=== PATIENT | female | born 1940 | race Caucasian/White ===

== ENCOUNTER 2016-09-28 16:20 | Inpatient (IN) | payer OTHER ==
[~2016-09-28] VITALS: Ht 167.6 cm; Wt 99.5 kg
[2016-09-28 16:20] VITALS: BP_SYST 158
[2016-09-28] MEDS ORDERED: traMADol HCL HCL 50 MG TABLET (ULTRAM) PO ONE (16:45)
[2016-09-28 17:23] LABS: BASOPHILS # (AUTO) 0.1 K/uL (0.0-0.2); EOSINOPHILS # (AUTO) 0.1 K/uL (0.0-0.4); EOSINOPHILS % (AUTO) 1.8 % (0.0-4.0); HEMATOCRIT 37.9 % (36-48); HEMOGLOBIN 12.7 g/dL (12.0-16.0); LYMPHOCYTES # (AUTO) 2.6 K/uL (1.0-5.5); LYMPHOCYTES % (AUTO) 32.3 % (20.5-51.5); MEAN CORPUSCULAR HEMOGLOBIN 27 pg (27-31); MEAN CORPUSCULAR HGB CONC 34 % (32-36); MEAN CORPUSCULAR VOLUME 81 fL (79.0-98.0); MONOCYTES # (AUTO) 0.8 K/uL (0.0-1.0); MONOCYTES % (AUTO) 9.3 % (1.7-9.3); NEUTROPHILS # (AUTO) 4.5 K/uL (1.8-7.7); NEUTROPHILS % (AUTO) 55.6 % (40.0-70.0); PLATELET COUNT (AUTO) 349 K/uL (130-430); RED BLOOD CELL COUNT(AUTO) 4.69 MIL/uL (4.2-6.2); RED CELL DISTRIBUTION WIDTH 14.6 % (9.0-15.0); WHITE BLOOD COUNT (AUTO) 8.1 K/uL (4.8-10.8)
[2016-09-28 17:33] LABS: ANION GAP 13 (5-15); CHLORIDE 102 mmol/L (98-107); CREATININE 1.17 mg/dL (0.55-1.30); GLUCOSE 187 mg/dL (70-99); POTASSIUM 3.5 mmol/L (3.5-5.1); SODIUM SERUM 141 mmol/L (136-145); UREA NITROGEN, BLOOD 18 mg/dL (8-21)
[2016-09-28 17:41] LABS: ALANINE AMINOTRANSFERASE 60 U/L (12-78); ALBUMIN 3.5 g/dL (3.4-4.8); ASPARTATE AMINOTRANSFERASE 55 U/L (10-37); TOTAL BILIRUBIN 0.6 mg/dL (0.0-1.0)
[2016-09-28] MEDS ORDERED: LORA-258 PO (19:53)
[2016-09-28] MEDS ORDERED: BENA10TA2 PO (19:53)
[2016-09-28] MEDS ORDERED: SIMV10TA6 PO (19:53)
[2016-09-28] MEDS ORDERED: PREG75CA PO (19:53)
[2016-09-28] MEDS ORDERED: DULA0.75 SQ (19:53)
[2016-09-28] MEDS ORDERED: HYG25 PO (19:53)
[2016-09-28] MEDS ORDERED: TYC3 PO (19:53)
[2016-09-28] MEDS ORDERED: METF1000 PO (19:53)
[2016-09-28] MEDS ORDERED: PRO20 PO (19:53)
[2016-09-28] MEDS ORDERED: CALC260T7 PO (19:53)
[2016-09-28] MEDS ORDERED: METR45CR9 TP (19:53)
[2016-09-28] MEDS ORDERED: FLUO10CA65 PO (19:53)
[2016-09-28] MEDS ORDERED: LORA1TAB PO (19:53)
[2016-09-28 20:07] VITALS: BP_SYST 150
[2016-09-28 20:19] VITALS: BP_SYST 150
[2016-09-28] MEDS ORDERED: ACETAMINOPHEN/CODEINE 300 MG-30 MG TABLET PO PRN (21:15)
[2016-09-28] MEDS ORDERED: DEXTROSE 50% JECT 50 ML DISP.SYRIN IVP PRN (21:30)
[2016-09-28] MEDS ORDERED: ALPRAZolam 0.25 MG TABLET PO PRN (21:30)
[2016-09-28] MEDS ORDERED: TEMAZEPAM 15 MG CAPSULE PO PRN (21:30)
[2016-09-28] MEDS: DIPHENHYDRAMINE HCL 25 MG CAPSULE PO PRN (23:30)
[2016-09-29] VITALS: BP_SYST 170
[2016-09-29 04:22] VITALS: BP_SYST 159
[2016-09-29] MEDS: INSULIN REGULAR, HUMAN 100 UNITS/ML, 10 ML VIAL (novoLIN R) SUBCUT PRN ×3 (06:32→20:37)
[2016-09-29 07:26] LABS: BILIRUBIN,URINE NEGATIVE (NEGATIVE); BLOOD, URINE NEGATIVE (NEGATIVE); CLARITY/URINE CLEAR (CLEAR); COLOR,URINE YELLOW (YELLOW); GLUCOSE,URINE NEGATIVE (NEGATIVE); KETONES,URINE NEGATIVE (NEGATIVE); LEUKOCYTE ESTERASE ,URINE NEGATIVE (NEGATIVE); NITRITE, URINE NEGATIVE (NEGATIVE); PROTEIN URINE NEGATIVE (NEGATIVE); UROBILINOGEN,URINE 0.2 (0.2-1.0)
[2016-09-29 07:42] LABS: BASOPHILS # (AUTO) 0.1 K/uL (0.0-0.2); BASOPHILS % (AUTO) 1.1 % (0.0-2.0); EOSINOPHILS # (AUTO) 0.2 K/uL (0.0-0.4); EOSINOPHILS % (AUTO) 2.3 % (0.0-4.0); HEMATOCRIT 40.3 % (36-48); LYMPHOCYTES # (AUTO) 2.5 K/uL (1.0-5.5); LYMPHOCYTES % (AUTO) 36.2 % (20.5-51.5); MEAN CORPUSCULAR HEMOGLOBIN 27 pg (27-31); MEAN CORPUSCULAR HGB CONC 32 % (32-36); MEAN CORPUSCULAR VOLUME 82 fL (79.0-98.0); MONOCYTES # (AUTO) 0.7 K/uL (0.0-1.0); MONOCYTES % (AUTO) 10.2 % (1.7-9.3); NEUTROPHILS # (AUTO) 3.4 K/uL (1.8-7.7); NEUTROPHILS % (AUTO) 50.2 % (40.0-70.0); PLATELET COUNT (AUTO) 351 K/uL (130-430); RED BLOOD CELL COUNT(AUTO) 4.91 MIL/uL (4.2-6.2); RED CELL DISTRIBUTION WIDTH 14.8 % (9.0-15.0); WHITE BLOOD COUNT (AUTO) 6.9 K/uL (4.8-10.8)
[2016-09-29 07:59] LABS: ALANINE AMINOTRANSFERASE 60 U/L (12-78); ALBUMIN 3.6 g/dL (3.4-4.8); ANION GAP 8 (5-15); ASPARTATE AMINOTRANSFERASE 51 U/L (10-37); CALCIUM 9.4 mg/dL (8.4-11.0); CHLORIDE 100 mmol/L (98-107); CHOLESTEROL 161 mg/dL (<200); CREATININE 0.79 mg/dL (0.55-1.30); GLUCOSE 220 mg/dL (70-99); HDL CHOLESTEROL 38 mg/dL (>55); LDL CHOLESTEROL 96 mg/dL (<100); POTASSIUM 3.4 mmol/L (3.5-5.1); SODIUM SERUM 137 mmol/L (136-145); THYROID STIMULATING HORMONE 1.76 uIu/mL (0.34-4.82); TOTAL BILIRUBIN 0.9 mg/dL (0.0-1.0); TOTAL PROTEIN, SERUM 7.5 g/dL (6.4-8.3); TRIGLYCERIDES 228 mg/dL (30-150); UREA NITROGEN, BLOOD 15 mg/dL (8-21)
[2016-09-29 08:00] VITALS: BP_SYST 125
[2016-09-29] MEDS: PREGABALIN 25 MG CAPSULE (LYRICA) PO SCH ×3 (08:20→20:38)
[2016-09-29] MEDS: FLUoxetine HCL 20 MG CAPSULE (PROzac) PO SCH (08:21)
[2016-09-29] MEDS: CALCIUM 500 MG/TAB PO SCH ×2 (08:21→20:38)
[2016-09-29] MEDS: metFORMIN HCL 500 MG TABLET PO SCH ×2 (08:21→17:48)
[2016-09-29] MEDS: BENAZEPRIL HCL 10 MG TABLET (LOTENSIN) PO SCH (08:21)
[2016-09-29] MEDS ORDERED: CALCIUM CARBONATE 650 MG TABLET PO SCH (09:00)
[2016-09-29] MEDS ORDERED: PREGABALIN 25 MG CAPSULE (LYRICA) PO SCH (09:00)
[2016-09-29 09:53] LABS: ERYTHROCYTE SEDIMENTATION RATE 11 MM/HR (0-20)
[2016-09-29 12:29] VITALS: BP_SYST 140
[2016-09-29 16:32] VITALS: BP_SYST 140
[2016-09-29] MEDS ORDERED: POTASSIUM CHLORIDE 20 MEQ TAB.PRT.SR PO ONE (16:45)
[2016-09-29 19:54] VITALS: BP_SYST 144
[2016-09-29] MEDS: SIMVASTATIN 10 MG TABLET PO SCH (20:38)
[2016-09-29] MEDS: DIPHENHYDRAMINE HCL 25 MG CAPSULE PO PRN (20:38)
[2016-09-30] VITALS (7 sets, daily range): BP systolic 107–158
[2016-09-30] MEDS: INSULIN REGULAR, HUMAN 100 UNITS/ML, 10 ML VIAL (novoLIN R) SUBCUT PRN ×3 (05:42→18:18)
[2016-09-30] MEDS: CALCIUM 500 MG/TAB PO SCH ×2 (08:44→21:22)
[2016-09-30] MEDS: FLUoxetine HCL 20 MG CAPSULE (PROzac) PO SCH (08:44)
[2016-09-30] MEDS: BENAZEPRIL HCL 10 MG TABLET (LOTENSIN) PO SCH (08:44)
[2016-09-30] MEDS: metFORMIN HCL 500 MG TABLET PO SCH ×2 (08:44→18:16)
[2016-09-30] MEDS: PREGABALIN 25 MG CAPSULE (LYRICA) PO SCH ×3 (08:45→21:22)
[2016-09-30 10:22] LABS: FOLATE (FOLIC ACID) >20.0 ng/mL (>3.0)
[2016-09-30] MEDS ORDERED: LACTOBACILLUS RHAMNOSUS GG 1 CAP CAPSULE PO ONE (10:45)
[2016-09-30] MEDS: metroNIDAZOLE 500 MG TABLET PO SCH ×2 (13:04→21:21)
[2016-09-30] MEDS: SIMVASTATIN 10 MG TABLET PO SCH (21:21)
[2016-09-30] MEDS: LACTOBACILLUS RHAMNOSUS GG 1 CAP CAPSULE PO SCH (21:22)
[2016-10-01] MEDS: metroNIDAZOLE 500 MG TABLET PO SCH ×3 (05:50→21:02)
[2016-10-01] MEDS: INSULIN REGULAR, HUMAN 100 UNITS/ML, 10 ML VIAL (novoLIN R) SUBCUT PRN ×3 (06:08→21:07)
[2016-10-01 06:15] VITALS: BP_SYST 130
[2016-10-01 08:00] VITALS: BP_SYST 149
[2016-10-01] MEDS: PREGABALIN 25 MG CAPSULE (LYRICA) PO SCH ×2 (08:15→21:02)
[2016-10-01] MEDS: metFORMIN HCL 500 MG TABLET PO SCH ×2 (08:15→17:34)
[2016-10-01] MEDS: CALCIUM 500 MG/TAB PO SCH ×2 (08:16→21:02)
[2016-10-01] MEDS: FLUoxetine HCL 20 MG CAPSULE (PROzac) PO SCH (08:16)
[2016-10-01] MEDS: LACTOBACILLUS RHAMNOSUS GG 1 CAP CAPSULE PO SCH ×2 (08:16→21:02)
[2016-10-01] MEDS: BENAZEPRIL HCL 10 MG TABLET (LOTENSIN) PO SCH ×2 (08:16→21:02)
[2016-10-01] MEDS ORDERED: ASPIRIN 81 MG TABLET(ECOTRIN) PO ONE (11:45)
[2016-10-01 12:00] VITALS: BP_SYST 140
[2016-10-01 16:42] VITALS: BP_SYST 136
[2016-10-01 19:55] VITALS: BP_SYST 120
[2016-10-01] MEDS: SIMVASTATIN 10 MG TABLET PO SCH (21:02)
[2016-10-02 01:17] VITALS: BP_SYST 151
[2016-10-02 05:39] VITALS: BP_SYST 146
[2016-10-02] MEDS: metroNIDAZOLE 500 MG TABLET PO SCH ×2 (05:46→14:41)
[2016-10-02] MEDS: INSULIN REGULAR, HUMAN 100 UNITS/ML, 10 ML VIAL (novoLIN R) SUBCUT PRN ×2 (05:48→11:40)
[2016-10-02 08:43] VITALS: BP_SYST 158
[2016-10-02] MEDS ORDERED: ASPIRIN 81 MG TABLET(ECOTRIN) PO SCH (09:00)
[2016-10-02] MEDS ORDERED: LOSARTAN POTASSIUM 25 MG TABLET PO SCH (09:00)
[2016-10-02] MEDS: BENAZEPRIL HCL 10 MG TABLET (LOTENSIN) PO SCH (09:19)
[2016-10-02] MEDS: PREGABALIN 25 MG CAPSULE (LYRICA) PO SCH (09:19)
[2016-10-02] MEDS: LACTOBACILLUS RHAMNOSUS GG 1 CAP CAPSULE PO SCH (09:19)
[2016-10-02] MEDS: metFORMIN HCL 500 MG TABLET PO SCH (09:20)
[2016-10-02] MEDS: FLUoxetine HCL 20 MG CAPSULE (PROzac) PO SCH (09:22)
[2016-10-02] MEDS: CALCIUM 500 MG/TAB PO SCH (09:22)
[2016-10-02 12:00] VITALS: BP_SYST 147
[2016-10-02 16:00] VITALS: BP_SYST 123
[2016-10-02 16:11] VITALS: BP_SYST 140
== END 2016-10-02 10:40 | disposition home health service (06) | DRG 74 ==
LOC: SED 16:20 → SMU 19:35
PROVIDERS: ADMIT Internal Medicine; ATTEND Internal Medicine
DX: E11.42 Type 2 diabetes mellitus with diabetic polyneuropathy (principal); G92 Toxic encephalopathy; E66.9 Obesity, unspecified; R19.7 Diarrhea, unspecified; E78.5 Hyperlipidemia, unspecified; I10 Essential (primary) hypertension; Z68.35 Body mass index [BMI] 35.0-35.9, adult; Z91.040 Latex allergy status
CPT/HCPCS: 36415; 70450-TC; 70544; 70551; 72170-TC; 80053; 80061; 81003; 82306; 82607; 82746; 82962; 83036; 83735-TC; 84443-TC; 84484; 85025; 85651-TC; 87045-TC; 87046; 87086; 89055; 97116-GP; 97530-GP; 99285; J1815; Q0163

== ENCOUNTER 2016-11-13 05:09 | Emergency (ER) | payer OTHER ==
[~2016-11-13] VITALS: Ht 170.2 cm; Wt 94.8 kg
[~2016-11-13 05:09] MED LIST: CALC260T7 PO; DULA0.75 SQ; LORA-258 PO; METF1000 PO; METR45CR9 TP; PRO20 PO; SIMV10TA6 PO; TYC3 PO
[2016-11-13 05:10] VITALS: BP_SYST 168
[2016-11-13 06:43] LABS: BASOPHILS # (AUTO) 0.1 K/uL (0.0-0.2); BASOPHILS % (AUTO) 1.2 % (0.0-2.0); EOSINOPHILS # (AUTO) 0.1 K/uL (0.0-0.4); HEMATOCRIT 38.4 % (36-48); HEMOGLOBIN 12.9 g/dL (12.0-16.0); LYMPHOCYTES # (AUTO) 2.2 K/uL (1.0-5.5); LYMPHOCYTES % (AUTO) 33.5 % (20.5-51.5); MEAN CORPUSCULAR HEMOGLOBIN 27 pg (27-31); MEAN CORPUSCULAR HGB CONC 34 % (32-36); MEAN CORPUSCULAR VOLUME 82 fL (79.0-98.0); MONOCYTES # (AUTO) 0.8 K/uL (0.0-1.0); NEUTROPHILS # (AUTO) 3.3 K/uL (1.8-7.7); NEUTROPHILS % (AUTO) 51.3 % (40.0-70.0); PLATELET COUNT (AUTO) 342 K/uL (130-430); RED BLOOD CELL COUNT(AUTO) 4.71 MIL/uL (4.2-6.2); RED CELL DISTRIBUTION WIDTH 14.5 % (9.0-15.0); WHITE BLOOD COUNT (AUTO) 6.5 K/uL (4.8-10.8)
[2016-11-13 06:44] LABS: BILIRUBIN,URINE NEGATIVE (NEGATIVE); BLOOD, URINE NEGATIVE (NEGATIVE); CLARITY/URINE CLEAR (CLEAR); COLOR,URINE YELLOW (YELLOW); GLUCOSE,URINE NEGATIVE (NEGATIVE); KETONES,URINE NEGATIVE (NEGATIVE); LEUKOCYTE ESTERASE ,URINE NEGATIVE (NEGATIVE); NITRITE, URINE NEGATIVE (NEGATIVE); PROTEIN URINE NEGATIVE (NEGATIVE); UROBILINOGEN,URINE 0.2 (0.2-1.0)
[2016-11-13 06:49] LABS: ANION GAP 9 (5-15); CALCIUM 9.1 mg/dL (8.4-11.0); CHLORIDE 103 mmol/L (98-107); CREATININE 0.75 mg/dL (0.55-1.30); GLUCOSE 189 mg/dL (70-99); POTASSIUM 3.8 mmol/L (3.5-5.1); SODIUM SERUM 139 mmol/L (136-145); UREA NITROGEN, BLOOD 15 mg/dL (8-21)
[2016-11-13 06:52] LABS: INR 1.1 (0.8-1.2); PROTHROMBIN TIME 11.4 SECS (9.5-12.5)
[2016-11-13 07:08] LABS: ALANINE AMINOTRANSFERASE 49 U/L (12-78); ALBUMIN 3.6 g/dL (3.4-4.8); ASPARTATE AMINOTRANSFERASE 38 U/L (10-37); TOTAL BILIRUBIN 0.7 mg/dL (0.0-1.0); TOTAL PROTEIN, SERUM 7.2 g/dL (6.4-8.3)
[2016-11-13 08:00] VITALS: BP_SYST 160
== END 2016-11-13 08:00 | disposition home or self-care (01) ==
LOC: SED 05:09
DX: S70.01XA Contusion of right hip, initial encounter (principal); E11.9 Type 2 diabetes mellitus without complications; I10 Essential (primary) hypertension; Z96.651 Presence of right artificial knee joint; Z90.89 Acquired absence of other organs; Z91.040 Latex allergy status; Z79.899 Other long term (current) drug therapy; W01.0XXA Fall on same level from slipping, tripping and stumbling without subsequent striking against object, initial encounter; Y93.89 Activity, other specified; Y92.89 Other specified places as the place of occurrence of the external cause; Y99.8 Other external cause status
CPT/HCPCS: 36415; 72192-TC; 80053; 81003; 85025; 85610-TC; 85730-TC; 99285

== ENCOUNTER 2017-04-12 18:50 | Emergency (ER) | payer OTHER ==
[~2017-04-12] VITALS: Ht 160 cm; Wt 81.6 kg
[2017-04-12 18:50] VITALS: BP_SYST 143
[2017-04-12] MEDS ORDERED: PRO20 PO (19:41)
[2017-04-12] MEDS ORDERED: DULA0.75 SQ (19:41)
[2017-04-12] MEDS ORDERED: SIMV10TA2 PO (19:41)
[2017-04-12] MEDS ORDERED: GABA-529 PO (19:41)
[2017-04-12] MEDS ORDERED: METF-510 PO (19:41)
[2017-04-12] MEDS ORDERED: LORA-258 PO (19:41)
[2017-04-12 20:09] LABS: ANION GAP 8 (5-15); BASOPHILS # (AUTO) 0.1 K/uL (0.0-0.2); BASOPHILS % (AUTO) 1.2 % (0.0-2.0); CALCIUM 8.9 mg/dL (8.4-11.0); CHLORIDE 99 mmol/L (98-107); CREATININE 0.78 mg/dL (0.55-1.30); EOSINOPHILS # (AUTO) 0.2 K/uL (0.0-0.4); EOSINOPHILS % (AUTO) 2.5 % (0.0-4.0); GLUCOSE 226 mg/dL (70-99); HEMATOCRIT 33.7 % (36-48); HEMOGLOBIN 10.6 g/dL (12.0-16.0); LYMPHOCYTES % (AUTO) 42.8 % (20.5-51.5); MEAN CORPUSCULAR HEMOGLOBIN 26 pg (27-31); MEAN CORPUSCULAR HGB CONC 32 % (32-36); MEAN CORPUSCULAR VOLUME 81 fL (79.0-98.0); MONOCYTES # (AUTO) 0.9 K/uL (0.0-1.0); MONOCYTES % (AUTO) 13.2 % (1.7-9.3); NEUTROPHILS # (AUTO) 2.8 K/uL (1.8-7.7); NEUTROPHILS % (AUTO) 40.3 % (40.0-70.0); PLATELET COUNT (AUTO) 384 K/uL (130-430); POTASSIUM 3.6 mmol/L (3.5-5.1); RED BLOOD CELL COUNT(AUTO) 4.17 MIL/uL (4.2-6.2); RED CELL DISTRIBUTION WIDTH 14.2 % (9.0-15.0); SODIUM SERUM 135 mmol/L (136-145); UREA NITROGEN, BLOOD 15 mg/dL (8-21); WHITE BLOOD COUNT (AUTO) 6.9 K/uL (4.8-10.8)
[2017-04-12 20:14] LABS: ALANINE AMINOTRANSFERASE 21 U/L (12-78); ALBUMIN 3.3 g/dL (3.4-4.8); ASPARTATE AMINOTRANSFERASE 15 U/L (10-37); TOTAL BILIRUBIN 0.3 mg/dL (0.0-1.0)
[2017-04-12 20:22] LABS: PROTHROMBIN TIME 10.2 SECS (9.5-12.5)
[2017-04-12 20:38] LABS: BILIRUBIN,URINE NEGATIVE (NEGATIVE); BLOOD, URINE NEGATIVE (NEGATIVE); CLARITY/URINE CLEAR (CLEAR); COLOR,URINE YELLOW (YELLOW); GLUCOSE,URINE 3+ (NEGATIVE); KETONES,URINE TRACE (NEGATIVE); LEUKOCYTE ESTERASE ,URINE NEGATIVE (NEGATIVE); NITRITE, URINE NEGATIVE (NEGATIVE); PROTEIN URINE NEGATIVE (NEGATIVE); UROBILINOGEN,URINE 0.2 (0.2-1.0)
[2017-04-12 20:52] LABS: BACTERIA,URINE FEW /HPF (None Seen); RBC,URINE 0-3 /HPF (0-3); WBC,URINE 0-3 /HPF (0-3)
[2017-04-12 21:01] LABS: ACETONE, SERUM NEGATIVE (NEGATIVE)
[2017-04-12 22:24] VITALS: BP_SYST 136
== END 2017-04-12 22:24 | disposition home or self-care (01) ==
LOC: SED 18:50
DX: E11.65 Type 2 diabetes mellitus with hyperglycemia (principal); Z90.89 Acquired absence of other organs; Z79.899 Other long term (current) drug therapy; Z91.040 Latex allergy status; Z96.651 Presence of right artificial knee joint
CPT/HCPCS: 36415; 80053; 81000-TC; 82009-TC; 85025; 85610-TC; 85730-TC; 99284